=== PATIENT | male | born 1960 | race Caucasian/White ===

== ENCOUNTER 2022-03-17 17:27 | Emergency (ER) | payer SELFPAY ==
[~2022-03-17] VITALS: Ht 182.9 cm; Wt 90.7 kg
== END 2022-03-17 19:46 | disposition home or self-care (01) ==
LOC: ER 17:27
DX: M71.21 Synovial cyst of popliteal space [Baker], right knee (principal); Z88.2 Allergy status to sulfonamides; Z88.5 Allergy status to narcotic agent
CPT/HCPCS: 93971